=== PATIENT | male | born 1995 | race Caucasian/White ===

== ENCOUNTER 2017-05-24 09:07 | Emergency (ER) | payer SELFPAY ==
[~2017-05-24] VITALS: Ht 167.6 cm; Wt 100.0 kg
[~2017-05-24 09:07] MED LIST: AMOXICILLIN500 MG PO; BENADRYL25 MG OR; CIPROFLOXACN500 MG PO; MEDDOSEPAK OR; NAPROSYN500 MG PO; PERCOCET 5/325M1 TAB OR; TAM75CAP PO
[2017-05-24] MEDS ORDERED: TORADOL PO (09:43)
[2017-05-24] MEDS ORDERED: FLEXERIL PO (09:43)
[2017-05-24 09:55] VITALS: BP 128/77
== END 2017-05-24 09:55 | disposition home or self-care (01) | DRG 563 ==
LOC: ED 09:07
DX: S39.012A Strain of muscle, fascia and tendon of lower back, initial encounter (principal); X50.0XXA Overexertion from strenuous movement or load, initial encounter; Y93.89 Activity, other specified; Y92.009 Unspecified place in unspecified non-institutional (private) residence as the place of occurrence of the external cause

== ENCOUNTER 2017-06-01 08:30 | Emergency (ER) | payer SELFPAY ==
[~2017-06-01] VITALS: Ht 167.6 cm; Wt 100.0 kg
[~2017-06-01 08:30] MED LIST changes: +FLEXERIL PO; +TORADOL PO
[2017-06-01 08:38] VITALS: BP 128/83
[2017-06-01 09:15] LABS: INFLUENZA A NONE DETECTED (NONE DETECT); INFLUENZA B NONE DETECTED (NONE DETECT)
[2017-06-01] MEDS ORDERED: AMOXICILLIN500 MG PO (09:24)
[2017-06-01] MEDS ORDERED: NAPROSYN500 MG PO (09:24)
== END 2017-06-01 09:49 | disposition home or self-care (01) | DRG 866 ==
LOC: ED 08:30
PROVIDERS: Emergency Medicine
DX: B34.9 Viral infection, unspecified (principal); J02.9 Acute pharyngitis, unspecified; R09.81 Nasal congestion; R05 Cough; R50.9 Fever, unspecified

== ENCOUNTER 2018-11-06 04:17 | Emergency (ER) | payer SELFPAY ==
[~2018-11-06] VITALS: Ht 167.6 cm; Wt 102.0 kg
[2018-11-06 05:37] LABS: HEMATOCRIT 45.4 % (39.0-50.0); HEMOGLOBIN 15.3 g/dl (14.0-18.0); IMMATURE GRANULOCYTES 0.4 % (0.0-5.0); MEAN CELL VOLUME 84.9 fL CALC (80.0-100.0); MEAN CORPUSCULAR HGB 28.6 pG CALC (26.0-32.0); MEAN CORPUSCULAR HGB CONC 33.7 g/L CALC (32.0-36.0); NEUT# 5.49 thou/uL (1.82-7.42); RED BLOOD COUNT 5.35 mill/uL (4.70-6.10); RED CELL DISTRI WIDTH 12.8 % (11.5-15.5)
[2018-11-06 05:42] LABS: BARBITURATES NEGATIVE (NEGATIVE); COCAINE NEGATIVE (NEGATIVE); METHADONE NEGATIVE (NEGATIVE); OXCYCODONE NEGATIVE (NEGATIVE); TETRAHYDROCANNABIONOL NEGATIVE (NEGATIVE); TRICYLIC ANTIDEPRESSANTS NEGATIVE (NEGATIVE)
[2018-11-06 05:49] LABS: ALBUMIN 4.7 g/dL (3.2-5.0); ALKALINE PHOSPHATASE 74 u/l (38-126); ANION GAP 14 (6-22 (CALC)); BUN 14 mg/dL (9-20); BUN/CREATININE RATIO 17 (12-20 (CALC)); CARBON DIOXIDE 30 mmol/l (22-30); CHLORIDE 101 mmol/l (95-108); CREATININE 0.8 mg/dL (0.7-1.3); GFR > 60 ML/MIN (>=60 (CALC)); GFR FOR AFR.AMER. > 60 ML/MIN (>=60 (CALC)); POTASSIUM 3.7 mmol/l (3.5-5.1); SGOT/AST 20 u/l (17-59); SODIUM 142 mmol/l (137-146); TOTAL PROTEIN 8.2 g/dL (6.3-8.2)
[2018-11-06 05:50] LABS: BILIRUBIN, TOTAL 0.4 mg/dL (0.0-1.4)
[2018-11-06 06:01] LABS: MYOGLOBIN 19 ng/mL (0 - 121)
[2018-11-06 07:10] VITALS: BP 148/78
== END 2018-11-06 07:17 | disposition home or self-care (01) | DRG 313 ==
LOC: ED 04:17
PROVIDERS: Emergency Medicine
DX: R07.89 Other chest pain (principal)
CPT/HCPCS: Q9967

== ENCOUNTER 2018-11-09 15:09 | Emergency (ER) | payer SELFPAY ==
[~2018-11-09] VITALS: Ht 167.6 cm; Wt 110.0 kg
[2018-11-09 15:49] LABS: HEMATOCRIT 46.1 % (39.0-50.0); HEMOGLOBIN 15.6 g/dl (14.0-18.0); IMMATURE GRANULOCYTES 0.3 % (0.0-5.0); MEAN CELL VOLUME 84.9 fL CALC (80.0-100.0); MEAN CORPUSCULAR HGB 28.7 pG CALC (26.0-32.0); MEAN CORPUSCULAR HGB CONC 33.8 g/L CALC (32.0-36.0); NEUT# 8.28 thou/uL (1.82-7.42); RED BLOOD COUNT 5.43 mill/uL (4.70-6.10); RED CELL DISTRI WIDTH 12.7 % (11.5-15.5)
[2018-11-09 15:57] LABS: BARBITURATES NEGATIVE (NEGATIVE); COCAINE NEGATIVE (NEGATIVE); METHADONE NEGATIVE (NEGATIVE); OXCYCODONE NEGATIVE (NEGATIVE); TETRAHYDROCANNABIONOL NEGATIVE (NEGATIVE); TRICYLIC ANTIDEPRESSANTS NEGATIVE (NEGATIVE)
[2018-11-09 16:09] LABS: ALBUMIN 4.9 g/dL (3.2-5.0); ALKALINE PHOSPHATASE 72 u/l (38-126); ANION GAP 17 (6-22 (CALC)); BUN 25 mg/dL (9-20); BUN/CREATININE RATIO 27 (12-20 (CALC)); CARBON DIOXIDE 29 mmol/l (22-30); CHLORIDE 100 mmol/l (95-108); CREATININE 0.9 mg/dL (0.7-1.3); GFR > 60 ML/MIN (>=60 (CALC)); GFR FOR AFR.AMER. > 60 ML/MIN (>=60 (CALC)); POTASSIUM 3.9 mmol/l (3.5-5.1); SGOT/AST 14 u/l (17-59); SODIUM 142 mmol/l (137-146)
[2018-11-09 16:10] LABS: BILIRUBIN, TOTAL 0.7 mg/dL (0.0-1.4)
[2018-11-09] MEDS ORDERED: XANAX0.25 MG PO (17:33)
[2018-11-09] MEDS ORDERED: PROTONIX40 M2 PO (17:33)
[2018-11-09 17:39] VITALS: BP 147/84
== END 2018-11-09 17:44 | disposition home or self-care (01) | DRG 204 ==
LOC: ED 15:09
PROVIDERS: Emergency Medicine
DX: R06.00 Dyspnea, unspecified (principal)
CPT/HCPCS: Q9967

== ENCOUNTER 2019-08-04 | Emergency (ER) | payer SELFPAY ==
[~2019-08-04] MED LIST changes: +PROTONIX40 M2 PO; +XANAX0.25 MG PO
== END 2019-08-04 11:24 | disposition home or self-care (01) | DRG 156 ==
PROC: 09C47ZZ Extirpation of Matter from Left External Auditory Canal, Via Natural or Artificial Opening (ICD-10-PCS; principal; 2019-08-04)
DX: T16.2XXA Foreign body in left ear, initial encounter (principal); X58.XXXA Exposure to other specified factors, initial encounter

== ENCOUNTER 2020-12-09 06:49 | Emergency (ER) | payer SELFPAY ==
[2020-12-09] MEDS ORDERED: ERYTHROMYCIN O3.5 GM OD (07:53)
[2020-12-09 10:20] VITALS: BP 128/71
== END 2020-12-09 10:25 | disposition home or self-care (01) | DRG 115 ==
LOC: ED 06:49
PROC: 08C8XZZ Extirpation of Matter from Right Cornea, External Approach (ICD-10-PCS; principal; 2020-12-09)
DX: T15.01XA Foreign body in cornea, right eye, initial encounter (principal); X58.XXXA Exposure to other specified factors, initial encounter

== ENCOUNTER 2022-01-08 09:44 | Emergency (ER) | payer SELFPAY ==
[~2022-01-08] VITALS: Ht 167.6 cm; Wt 100.0 kg
[~2022-01-08 09:44] MED LIST changes: +ERYTHROMYCIN O3.5 GM OD
[2022-01-08 09:49] VITALS: BP 124/95
[2022-01-08 13:33] VITALS: BP 124/95
== END 2022-01-08 13:33 | disposition home or self-care (01) | DRG 552 ==
LOC: ED 09:44
DX: M54.50 Low back pain, unspecified (principal)

== ENCOUNTER 2024-06-28 02:15 | Emergency (ER) | payer BC ==
[~2024-06-28] VITALS: Ht 167.6 cm; Wt 101.6 kg
[2024-06-28] MEDS ORDERED: Acetaminophen 300 MG/Codeine 30 MG/COMBO PO ONE (02:40)
[2024-06-28] MEDS ORDERED: IBUPROFEN 800 MG/TAB PO ONE (02:40)
[2024-06-28 02:59] LABS: BASO% 0.3 % (0-3); EOS% 0.2 % (0-8); HEMATOCRIT 45.6 % (39.0-50.0); HEMOGLOBIN 15.5 g/dl (14.0-18.0); IMMATURE GRANULOCYTES 0.3 % (0.0-5.0); LYMPH% 9.9 % (15-41); MEAN CELL VOLUME 84.1 fL CALC (80.0-100.0); MEAN CORPUSCULAR HGB 28.6 pG CALC (26.0-32.0); MONO% 7.7 % (2-13); NEUT# 11.89 thou/uL (1.82-7.42); NEUT% 81.6 % (42-76); RED BLOOD COUNT 5.42 mill/uL (4.70-6.10); RED CELL DISTRI WIDTH 12.6 % (11.5-15.5)
[2024-06-28 03:20] LABS: ALBUMIN 4.5 g/dL (3.2-5.0); BILIRUBIN, TOTAL 0.9 mg/dL (0.2-1.3); CREATININE 0.9 mg/dL (0.7-1.3); POTASSIUM 4.1 mmol/l (3.5-5.1); TOTAL PROTEIN 7.8 g/dL (6.3-8.2)
[2024-06-28 04:51] LABS: URINE BLOOD DIPSTICK Negative (NEGATIVE); URINE GLUCOSE - DIPSTICK Negative (NEGATIVE); URINE KETONE 40 mg/dL (NEGATIVE); URINE LEUK ESTERASE Negative (NEGATIVE); URINE NITRITE - DIPSTICK Negative (Negative); URINE PH 6.5 (4.5-8.0); URINE PROTEIN - DIPSTICK Trace mg/dL (NEG-TRACE); URINE SPECIFIC GRAVITY 1.025
[2024-06-28 05:07] LABS: URINE COLOR Yellow
[2024-06-28] MEDS ORDERED: VOLTAREN - GENE75 MG PO (05:21)
[2024-06-28 05:24] VITALS: BP 153/91
== END 2024-06-28 05:30 | disposition home or self-care (01) | DRG 538 ==
LOC: ED 02:15
PROVIDERS: Family Medicine
DX: S76.812A Strain of other specified muscles, fascia and tendons at thigh level, left thigh, initial encounter (principal); X58.XXXA Exposure to other specified factors, initial encounter